=== PATIENT | female | born 1980 | race Caucasian/White ===

== ENCOUNTER → 2018-06-04 | Outpatient (CLI) | payer BC | LOC: FIMAGING 09:39 | PROVIDERS: ATTEND Obstetrics & Gynecology | DX: Z12.31 Encounter for screening mammogram for malignant neoplasm of breast (principal) ==

== ENCOUNTER → 2018-06-10 | Outpatient (CLI) | payer BC | LOC: FIMAGING 11:01 | PROVIDERS: ATTEND Obstetrics & Gynecology | DX: N60.02 Solitary cyst of left breast (principal) ==

== ENCOUNTER 2018-06-21 07:50 | Day surgery (SDC) | payer BC ==
--- NOTE | 2018-06-18 18:35 | GHP ---
DATE OF ADMISSION: 06/21/2018 DATE OF SURGERY: 06/21/2018. PREOPERATIVE DIAGNOSIS: Menometrorrhagia and endometrial polyp. SURGERY TO BE PERFORMED: Hysteroscopy, dilation, curettage, polypectomy with morcellator and Roxanne endometrial ablation. SURGEON: Will be Dr. Arlette Craig. HISTORY OF PRESENT ILLNESS: The patient is a 37-year-old 3, para 3-0-0-3, who presents compl aining of a long-standing history of increasing menstrual periods. Periods have become very heavy, s oaking multiple pads an hour for at least 2-3 days of her cycle, causing her to get up at night, and difficult to work and exercise. She is dizzy and lightheaded during her cycles and feels exhausted f rom this. We did a workup for her menorrhagia. Workup included a pelvic ultrasound. Pelvic ultraso und showed a heterogeneous uterus with a thickened endometrial stripe that was 1.7 cm. Trace fluid i n her scar. Ovaries were normal. Blood work included a CBC, and she had mild anemia. Hem oglobin 10.7. Hematocrit is 35.5. Iron was low at 27. TSH was fine at 1.51. The patient has had a salpingectomy, and her has had a vasectomy. They have completed childbearing, and she alvin es definitive treatment for her menorrhagia. She also underwent an endometrial biopsy. Endometrial biopsy showed polypoid fragments of secretory endometrium and area suggestive of endometrial polyp. No hyperplasia or malignancy seen. We discussed treatment options, and patient wishes to have defini tive management with a hysteroscopy, D and C, polypectomy, and an endometrial ablation. PAST MEDICAL HISTORY: Patient has no significant past medical history except for multiple surgeries in her right knee. 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 She has no other past medical h istory. PAST OBSTETRICAL HISTORY: The patient has had x2. In December 2000, she had a for arrest of descent complicated by postop endometritis and infection. In February of 2004, she had a faile d , and in February of 2008, she had a repeat section and a salpingectomy; it was uncomplic ated, viable female. Only other surgeries are knee surgeries in addition to her 3 C-sections. ALLERGIES: She is sensitive to morphine. It gives her itching. CURRENT MEDICATIONS: She is not on any current medications except iron supplementation. SOCIAL HISTORY: She is . She lives with her and her 3 children. She works as a real estate internship. She denies tobacco, alcohol. She has 2 drinks 3 or 4 times a week. No drug use. Ca ffeine 1-2 cups a day. FAMILY HISTORY: Significant for grandmother with breast cancer in her 60s. Increased cholesterolemi a in her father. Heart disease in her father, paternal grandfather, and high blood pressure in her f ather. REVIEW OF SYSTEMS: Negative except for pertinent positives as above. Incidentally, patient also und erwent a breast ultrasound and mammogram in preparation for breast augmentation that she is going to have performed on June 22. She had a benign cyst that was worked up and evaluated. No other abnor malities on her mammogram. OBJECTIVE: VITALS: Today blood pressure 118/64. Weight 123 pounds. GENERAL: She is a well-develo ped, well-nourished white female, in no acute distress. LUNGS: Clear to auscultation bilaterally. HEART: Regular rate and rhythm. No murmurs. ABDOMEN: Soft, nontender, and nondistended. Normal b owel sounds. PELVIC: Normal external genitalia. Normal nulliparous cervix. Uterus is anteverted, anteflexed, nontender. ASSESSMENT AND PLAN: A 37-year-old 3, para 3-0-0-3, with a longstanding history of menometro rrhagia, endometrial polyps for hysteroscopy, D and C, polypectomy and Roxanne endometrial ablation. Patient was consented for the procedure. She understood the risks and benefits, the risks including bleeding, infection, damage to uterus, damage to internal organs if uterine perforation were to occu r, and need for additional procedures. /[id number]/MODL
[2018-06-21] MEDS ORDERED: SILVER NITRATE APPLICATOR 1 APPL TP ONE ×2 (08:00→08:11)
[2018-06-21] MEDS ORDERED: ceFAZolin 2 GM/DEXTROSE 100 ML IV ONE (08:11)
[2018-06-21] MEDS ORDERED: LR 1,000 ML IV ONE (08:12)
--- NOTE | 2018-06-21 09:02 | PDANEPAE ---
ANE History of Present Illness Hysteroscope endometrial ablation ANE Past Medical History - Cardiovascular History Hx Hypertension: No Hx Arrhythmias: No Hx Chest Pain: No Hx Coronary Artery / Peripheral Vascular Disease: No Hx CHF / Valvular Disease: No Hx Palpitations: No - Pulmonary History Hx COPD: No Hx Asthma/Reactive Airway Disease: No Hx Recent Upper Respiratory Infection: No Hx Oxygen in Use at Home: No Hx Sleep Apnea: No Sleep Apnea Screening Result - Last Documented: Negative - Neurologic History Hx Cerebrovascular Accident: No Hx Seizures: No Hx Dementia: No - Endocrine History Hx Diabetes: No Hypothyroid: No Hyperthyroid: No Obesity: no - Renal History Hx Renal Disorders: No - Liver History Hx Hepatic Disorders: No - Neurological & Psychiatric Hx Hx Neurological and Psychiatric Disorders: No - Cancer History Hx Cancer: No - Congenital Disorder History Hx Congenital Disorders: No - GI History Hx Gastrointestinal Disorders: No - Other Health History Other Health History: anemic - Chronic Pain History Chronic Pain: No - Surgical History Prior Surgeries: 3 knee surgeries. 3 c-sections. torn achilles repair ANE Review of Systems Review of systems is: negative Review of Systems: - Exercise capacity METS (RN): 5 METS ANE Patient History - Allergies Allergies/Adverse Reactions: acetaminophen [From Percocet] Allergy (Verified 06/17/18 16:09) Itching hydrocodone [From Vicodin] Allergy (Verified 06/17/18 16:09) Itching oxycodone [From Percocet] Allergy (Verified 06/17/18 16:09) Itching - Home Medications Home Medications: Gpc Liquid 06/17/18 [Last Taken 1 Day Ago ~06/20/18] Iron 06/17/18 [Last Taken 2 Days Ago ~06/19/18] Vitamin C 06/17/18 [Last Taken 1 Day Ago ~06/20/18] - NPO status NPO Status: no food or drink >8 hours NPO Since - Liquids (Date): 06/20/18 NPO Since - Liquids (Time): 22:30 NPO Since - Solids (Date): 06/20/18 NPO Since - Solids (Time): 19:00 - Smoking Hx Smoking Status: Never smoked - Family Anes Hx Family Hx Anesthesia Complications: none ANE Labs/Vital Signs - Vital Signs Blood Pressure: 93/38 Heart Rate: 57 Respiratory Rate: 16 O2 Sat (%): 99 Height: 166.37 cm Weight: 56.699 kg ANE Physical Exam - Airway Neck exam: FROM Mallampati Score: Class 1 Mouth exam: normal dental/mouth exam, poor dentition - Pulmonary Pulmonary: no respiratory distress, no rales or rhonchi - Cardiovascular Cardiovascular: regular rate and rhythym, no murmur, rub, or gallop - ASA Status ASA Status: I ANE Anesthesia Plan Anesthesia Plan: GA w LMA
[2018-06-21] MEDS ORDERED: MIDAZOLAM 2 MG/2 ML VIAL IVP ONE (09:33)
[2018-06-21] MEDS ORDERED: fentaNYL 100 MCG/2 ML INJ ONE ×3 (09:50→10:53)
[2018-06-21] MEDS ORDERED: PROPOFOL/EMULSION 500 MG/50 ML BOTTLE IV ONE (09:50)
[2018-06-21] MEDS ORDERED: LIDOCAINE 2% 2 ML INJ ONE (10:09)
[2018-06-21] MEDS ORDERED: KETOROLAC 30 MG/1 ML SDV ONE (10:10)
[2018-06-21] MEDS ORDERED: ONDANSETRON 4 MG/2 ML VIAL ONE (10:10)
[2018-06-21] MEDS ORDERED: DEXAMETHASONE 4 MG/ML VIAL ONE (10:10)
[2018-06-21] MEDS ORDERED: IBUPROFEN 600 MG TAB PO PRN (10:42)
[2018-06-21] MEDS ORDERED: HYDROmorphONE/DILAUDID 2 MG TAB PO PRN (10:42)
--- NOTE | 2018-06-21 10:43 | PDHPUP ---
History & Physical Update H&P update statement: This history and physical update is based on an assessment of the patient which was completed after admission or registration (within 24 hours), but prior to the surgery/procedure. H&P update: H&P reviewed & patient examined, no change in patient's condition since H&P completed
--- NOTE | 2018-06-21 10:45 | POSTOPPROG ---
Post Op Note Date of Operation: 06/21/18 Surgeon: Arlette Craig Anesthesiologist: Dr Kathleen Reid Anesthesia: GET(General Endotracheal) Pre-op Diagnosis: menorrhagia, endometrial polyps Post-op Diagnosis: same Procedure: Hysteroscopy d an c, polypectomy, Roxanne endometrial ablation Findings: uterus with polyps Inf/Abcess present in the surg proc area at time of surgery?: No Depth: Organ Space EBL: Minimal Total fluids administered: 500 Complications: none Specimen(s): endometrial tissue
[2018-06-21] MEDS ORDERED: ACETAMINOPHEN 500 MG TAB PO PRN (10:52)
[2018-06-21] MEDS ORDERED: NALOXONE HCL 0.4 MG/ML INJ IVP PRN (10:52)
[2018-06-21] MEDS ORDERED: ONDANSETRON 4 MG/2 ML VIAL IVP PRN (10:52)
[2018-06-21] MEDS ORDERED: fentaNYL 100 MCG/2 ML INJ IVP PRN (10:52)
[2018-06-21] MEDS ORDERED: PROMETHAZINE HCL 25 MG/ML INJ IVP PRN (10:52)
--- NOTE | 2018-06-21 11:17 | POSTANESTH ---
Post Anesthetic Evaluation Cardiovascular Status: Normal, Stable Respiratory Status: Normal, Stable Level of Consciousness/Mental Status: Can Participate in Eval Pain Control: Adequate, Prn Tx Ordered Nausea/Vomiting Control: Adequate, Prn Tx Ordered Complications Possibly Related to Anesthesia: None Noted
--- NOTE | 2018-06-21 11:28 | GOP ---
DATE OF OPERATION: 06/21/2018 SURGEON: Arlette Craig MD ANESTHESIA: General anesthesia with an LMA. ANESTHESIOLOGIST: Kathleen Reid MD. PREOPERATIVE DIAGNOSIS: Menometrorrhagia and endometrial polyp. POSTOPERATIVE DIAGNOSIS: Menometrorrhagia and endometrial polyp. PROCEDURE PERFORMED: Hysteroscopy, dilation and curettage, polypectomy with morcellator and Roxanne endometrial ablation. FINDINGS: SPECIMENS: Will be endometrial tissue. ESTIMATED BLOOD LOSS: Less than 10 cc. DESCRIPTION OF PROCEDURE: Patient was taken to the operating room where she was placed under general anesthesia without difficulty and an LMA was placed. She was prepped and draped in the dorsal litho amer[place] position and her bladder had previously just been drained. After a WHO time-out was performed a n open-sided speculum was placed in the vagina, and a single-tooth tenaculum was used to grasp the an terior lip of the cervix. The uterus sounded to 9 cm and her cervix sounded to 3 cm giving a cavity length of 6. Her cervix was progressively dilated to Silver dilators to #6. The 6 mm hysteroscope wa s then gently advanced from the cervix to the fundus and good visualization was performed. There was thickened tissue throughout the endometrial cavity with polypoid structures seen. No other definiti ve anatomical abnormalities were observed. Both tubal ostia were observed directly. The polyp blade was then inserted through the operative channel. A window lock was performed and with suction on po lypectomy was performed throughout the entire endometrial cavity to clean up all of the redundant bigg ypoid tissue until a clean endometrial cavity was observed again with care to observe the tubal ostia . The hysteroscope was then removed. The Roxanne device was then set to a cavity length of 6, gentl y advanced from the cervix to the fundus. The fan was opened and the balloon was inflated. The jeramie ent passed the cavity assessment. The ablation device was then engaged and the ablation took place o ryan 120 seconds. The balloon was deflated. The Roxanne was removed. Final pass of the hysteroscope revealed a good burn of the endometrial tissue and a normal cavity. The hysteroscope was removed. The tenaculum was removed. There was no bleeding at the anterior lip of the cervix. The speculum wa s removed. The patient tolerated the procedure well. Sponge, lap, needle, and instrument counts wer e correct x2 and fluid deficit was 100 cc. The patient went to the recovery room in good condition. INDICATIONS FOR PROCEDURE: The patient is a 37-year-old, 3, para 3-0-0-3, who presents compl aining of a long-standing history of increasing menstrual periods. The periods have become very diff icult causing her to have difficulties going to work and performing her daily activities. She is soa savannah multiple pads an hour for at least 2-3 days of her cycle, getting up multiple times at night. S he feels dizzy and lightheaded during her cycles and is exhausted from this. We did a workup for her menorrhagia, which included a pelvic ultrasound which showed a heterogeneous uterus with thickened e ndometrium stripe that was 1.17 cm. Ovaries were normal. Blood work included a CBC and she showed m ild anemia with a hemoglobin of 10.7, hematocrit of 35.5, and iron was low at 27. TSH was normal. T he patient has had a salpingectomy. Her has had a vasectomy. They have completed childbeari ng. She desires definitive treatment for her menorrhagia. We discussed surgical options and she opt ed for hysteroscopy, D and C, and endometrial ablation. The patient was consented for the procedure. She understood the risks and benefits the risks including bleeding, infection, damage to the uterus including possible risk of perforation, damage to other organs if perforation was to occur, need for electrolyte imbalances and need for additional procedures. She understood these risks and benefits and agreed to proceed. IV FLUID REPLACEMENT: 500 cc. URINE OUTPUT: Not measured. /[id number]/MODL
[2018-06-21 12:05] VITALS: BP 101/74
== END 2018-06-21 11:59 | disposition home or self-care (01) ==
LOC: FSGY 07:50
PROVIDERS: ATTEND Obstetrics & Gynecology
PROC: 0U5B8ZZ Destruction of Endometrium, Via Natural or Artificial Opening Endoscopic (ICD-10-PCS; principal; 2018-06-21 09:30)
DX: N92.1 Excessive and frequent menstruation with irregular cycle (principal); N84.0 Polyp of corpus uteri
CPT/HCPCS: 58563; C1782; J0690; J1100; J1885; J2250; J2405; J2704; J3010